=== PATIENT | female | born 1950 | race Caucasian/White ===

== ENCOUNTER → 2017-10-05 | Outpatient (CLI) | payer OTHER, MEDICARE | LOC: BMCIMAGING 15:02 | PROVIDERS: ATTEND Family Medicine | DX: N28.1 Cyst of kidney, acquired (principal) ==

== ENCOUNTER → 2017-12-17 | Outpatient (CLI) | payer OTHER, MEDICARE ==
[~2017-12-17] MED LIST: GADOBUTROL 10 ML VIAL IVP ONE
== END ==
LOC: FIMAGING 12:24
PROVIDERS: ATTEND Psychiatry & Neurology Neurology
DX: G35 Multiple sclerosis (principal); M53.82 Other specified dorsopathies, cervical region; M48.02 Spinal stenosis, cervical region
CPT/HCPCS: 70553; 72156; A9585; 82565-PO

== ENCOUNTER → 2018-09-14 | Outpatient (CLI) | payer OTHER, MEDICARE | LOC: BMCIMAGING 14:55 ==

== ENCOUNTER 2018-09-16 13:23 | Day surgery (SDC) | payer OTHER, MEDICARE ==
[2018-09-16] MEDS ORDERED: ceFAZolin 2 GM/DEXTROSE 100 ML IV ONE (14:02)
[2018-09-16] MEDS ORDERED: BOTULINUM TOXIN TYPE A 100 UNIT VIAL MISC ONE (14:30)
--- NOTE | 2018-09-16 14:36 | PDHPUP ---
History & Physical Update H&P update statement: This history and physical update is based on an assessment of the patient which was completed after admission or registration (within 24 hours), but prior to the surgery/procedure. H&P update: H&P reviewed & patient examined, no change in patient's condition since H&P completed
[2018-09-16] MEDS ORDERED: LR 1,000 ML IV ONE (14:39)
[2018-09-16] MEDS ORDERED: LIDOCAINE 2% JELLY 20 ML (UROJECT) ONE (15:00)
[2018-09-16] MEDS ORDERED: PROPOFOL 200 MG/20 ML VIAL ONE ×2 (15:17)
[2018-09-16] MEDS ORDERED: ONDANSETRON 4 MG/2 ML VIAL ONE (15:17)
[2018-09-16] MEDS ORDERED: fentaNYL 100 MCG/2 ML INJ ONE (15:17)
[2018-09-16] MEDS ORDERED: DEXAMETHASONE 4 MG/ML VIAL ONE (15:17)
[2018-09-16] MEDS ORDERED: LIDOCAINE 2% 2 ML INJ ONE (15:18)
[2018-09-16] MEDS ORDERED: NALOXONE HCL 0.4 MG/ML INJ IVP PRN (16:24)
[2018-09-16] MEDS ORDERED: fentaNYL 100 MCG/2 ML INJ IVP PRN (16:24)
[2018-09-16] MEDS ORDERED: PROMETHAZINE HCL 25 MG/ML INJ IVP PRN (16:24)
[2018-09-16] MEDS ORDERED: HYDROCODONE/APAP 5/325 TAB PO PRN (16:24)
--- NOTE | 2018-09-16 16:24 | POSTANESTH ---
Post Anesthetic Evaluation Cardiovascular Status: Normal, Stable Respiratory Status: Normal, Stable Level of Consciousness/Mental Status: Mildly Sleepy, Arousable Pain Control: Adequate, Prn Tx Ordered Nausea/Vomiting Control: Adequate, Prn Tx Ordered Complications Possibly Related to Anesthesia: None Noted
--- NOTE | 2018-09-16 16:24 | PDANEPAE ---
ANE Past Medical History - Cardiovascular History Hx Hypertension: No Hx Arrhythmias: No Hx Chest Pain: No Hx Coronary Artery / Peripheral Vascular Disease: No Hx CHF / Valvular Disease: No Hx Palpitations: No - Pulmonary History Hx COPD: No Hx Asthma/Reactive Airway Disease: No Hx Recent Upper Respiratory Infection: No Hx Oxygen in Use at Home: No Hx Sleep Apnea: No Sleep Apnea Screening Result - Last Documented: Negative - Neurologic History Hx Cerebrovascular Accident: No Hx Seizures: No Hx Dementia: No - Endocrine History Hx Diabetes: No Endocrine History Comment: HYPOTHYROID - Renal History Hx Renal Disorders: Yes Renal History Comment: UA INCONT - Liver History Hx Hepatic Disorders: No - Neurological & Psychiatric Hx Hx Neurological and Psychiatric Disorders: No - Cancer History Hx Cancer: No - Congenital Disorder History Hx Congenital Disorders: No - GI History Hx Gastrointestinal Disorders: No - Other Health History Other Health History: CERVICAL DISC DX MILD CENTRAL CANAL STENOSIS. MS SINCE . RT FOOT FALLEN ARCH AND LEG WEAKNESS RELATED TO MS - Chronic Pain History Chronic Pain: Yes (RT LEG) - Surgical History Prior Surgeries: LT SHLDR SCOPE. VAG HYST. TONSILLECTOMY ANE Review of Systems Review of Systems: - Exercise capacity METS (RN): 4 METS ANE Patient History - Allergies Allergies/Adverse Reactions: No Known Allergies Allergy (Unverified 09/16/18 14:28) - Home Medications Home Medications: Baclofen TID 09/10/18 [Last Taken 09/16/18 10:00] Cymbalta HS 09/10/18 [Last Taken 09/15/18 22:00] Herbals/Supplements -Info Only DAILY 09/10/18 [Last Taken 09/02/18] Myrbetriq HS 09/10/18 [Last Taken 09/15/18 22:00] Synthroid HS 09/10/18 [Last Taken 09/15/18 22:00] Vesicare HS 09/10/18 [Last Taken 09/15/18 22:00] - NPO status NPO Since - Liquids (Date): 09/16/18 NPO Since - Liquids (Time): 12:00 NPO Since - Solids (Date): 09/15/18 NPO Since - Solids (Time): 22:00 - Smoking Hx Smoking Status: Never smoked - Family Anes Hx Family Hx Anesthesia Complications: NEG ANE Labs/Vital Signs - Vital Signs Blood Pressure: 151/82 Heart Rate: 66 Respiratory Rate: 10 O2 Sat (%): 96 Height: 175.26 cm Weight: 63.503 kg ANE Physical Exam - Airway Neck exam: FROM Mallampati Score: Class 1 Mouth exam: normal dental/mouth exam - Pulmonary Pulmonary: no respiratory distress - Cardiovascular Cardiovascular: regular rate and rhythym - ASA Status ASA Status: II ANE Anesthesia Plan Anesthesia Plan: GA w LMA Urgent/Emergent Case: Segundo pagan completed preop but documented later for safe timely pt care
[2018-09-16 17:30] VITALS: BP 147/82
--- NOTE | 2018-09-16 18:08 | POSTOPPROG ---
Post Op Note Date of Operation: 09/16/18 Surgeon: Shraddha Porras Anesthesia: LMA Pre-op Diagnosis: neurogenic detrusor overactivity, MS Post-op Diagnosis: same Indication: neurogenic detrusor overactivity, MS Procedure: cysto, intravesical injection of botox Findings: normal bladder, 200U botox injected Inf/Abcess present in the surg proc area at time of surgery?: No EBL: Minimal Complications: None patient tolerated procedure well
--- NOTE | 2018-09-16 23:05 | GOP ---
[f rep st] OPERATIVE REPORT DATE OF OPERATION: 09/16/2018 SURGEON: Shraddha Porras MD ANESTHESIOLOGIST: Dr. Gardiner. 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 PROCEDURE PERFORMED: Cystoscopy and intravesical injection of Botox. FINDINGS: Normal bladder. 200 units of Botox were injected in a grid-like pattern. SPECIMENS: None. ESTIMATED BLOOD LOSS: Minimal. INDICATIONS: This is a patient of mine who has done oral anticholinergics and beta agonists without relief of her symptoms. She still leaks and still has significant overactive bladder symptoms with u rgency and frequency. I did do a urodynamic study, which confirmed the overactivity. I felt that [employer] would be an excellent option for her. I did discuss the possible need to catheterize, and she is willing to do this if needed. The risks that I discussed with her included bleeding, infection, buzz n, injury to the urethra, the bladder, the ureteral orifices, need for short-term intermittent cathet erization, and need for repeating the procedure because it does eventually wear off. She understood all these and agreed to proceed. DESCRIPTION OF PROCEDURE: She was taken back to the operating room, placed on the operating room tab le in the supine position. General anesthesia induced without complication. Time-out performed. Co re measures satisfied, including placement of a Reddy Hugger, SCDs, and administration of Ancef antibi otics. She was brought to the end of the table, placed in a dorsal lithotomy position. All pressure points padded. Genitalia prepped and draped in the standard surgical fashion with Betadine. Rigid cystoscope easily cannulated the urethral meatus and was advanced atraumatically into the bladder. P an-cystoscopy was performed, and the bladder was normal with no cellules, lesions, trabeculations, ma sses, or abnormalities. Of note, prior to starting the case, I did reconstitute the Botox. I recons tituted 200 units. I had two 100 unit vials, and I injected into the Botox bottle 10 mL of preservat prachi-free injectable normal saline. Then I would inject into the bladder 40 injections, 0.5 mL each, of the reconstituted Botox. So I had my scope in the bladder. I found the ureteral orifices and sta yed away from the trigone during the injections. I advanced the needle carefully through the cystosc ope and then set my needle length at 3 mm. I then injected shorter units of Botox in a grid-like pat tern. I used 0.5 mL at each injection for a total of 40 injections. I injected all over the bladder except for the trigone, and hemostasis was excellent at the end of the case. She did well during th e entire procedure. I did then empty her bladder and placed lidocaine jelly per urethra. The case w as now considered complete. She was awoken from anesthesia and transferred to PACU in good condition . COMPLICATIONS: None. /[id number]/MODL
== END 2018-09-16 17:30 | disposition home or self-care (01) ==
LOC: FSGY 13:23
PROVIDERS: ATTEND Urology
PROC: 3E0K8GC Introduction of Other Therapeutic Substance into Genitourinary Tract, Via Natural or Artificial Opening Endoscopic (ICD-10-PCS; principal; 2018-09-16 15:00)
DX: N32.81 Overactive bladder (principal); R39.15 Urgency of urination; G35 Multiple sclerosis; E03.9 Hypothyroidism, unspecified
CPT/HCPCS: J0585; J0690; J1100; J2405; J2704; J3010